=== PATIENT | female | born 1970 ===

== ENCOUNTER 2019-06-15 15:37 | Emergency (ER) | payer SELFPAY ==
--- NOTE | 2019-06-15 15:52 | UC ---
Throat Pain/Nasal Mario HPI - HPI Summary HPI Summary: 48 yo female presents with URI symptoms. She tells me that for the past week she has had a sore throat, sinus pain/pressure/congestion, post nasal drip, and a dry cough. She has been taking OTC dayquill with no relief. She is a former smoker, but has not in many years. Denies fever, chills, SOB, rash - History of Current Complaint Stated Complaint: SINUS COMPLAINT Time Seen by Provider: 06/15/19 15:52 Hx Obtained From: Patient Onset/Duration: Gradual Onset Severity: Moderate Pain Intensity: 5 Pain Scale Used: 0-10 Numeric - Allergies/Home Medications Allergies/Adverse Reactions: Allergies Allergy/AdvReac Type Severity Reaction Status Date / Time seasonal Allergy Runny Nose Uncoded 06/15/19 15:53 Home Medications: Home Medications Atorvastatin* [Lipitor*] 20 mg PO 1700 06/15/19 [History Confirmed 06/15/19] Budesonide [Rhinocort Allergy] 8.43 ml NS DAILY 06/15/19 [History Confirmed ] Cetirizine* [ZyrTEC 10 MG TAB*] 10 mg PO DAILY 06/15/19 [History Confirmed 06/15] Dayquil 1 cap PO DAILY 06/15/19 [History] Lisinopril [Zestril 5 MG-] 20 mg PO DAILY 06/15/19 [History Confirmed 06/15/19] Multivitamin [Multivitamins] 1 cap PO DAILY 06/15/19 [History Confirmed 06/15/19 ] PMH/Surg Hx/FS Hx/Imm Hx Endocrine History: Dyslipidemia Cardiovascular History: Hypertension - Surgical History Surgical History: Yes Surgery Procedure, Year, and Place: appendectomy. spinal surgery 2012. hysterscopy 3 months ago - Family History Known Family History: Positive: Hypertension - Social History Lives: With Family Alcohol Use: Occasionally Substance Use Type: None Smoking Status (MU): Former Smoker Type: Cigarettes Review of Systems All Other Systems Reviewed And Are Negative: No Constitutional: Positive: Negative Skin: Positive: Negative Eyes: Positive: Negative ENT: Positive: Sore Throat, Nasal Discharge, Sinus Congestion, Sinus Pain/ Tenderness Respiratory: Positive: Cough Cardiovascular: Positive: Negative Gastrointestinal: Positive: Negative Neurological: Positive: Negative Psychological: Positive: Negative Physical Exam - Summary Physical Exam Summary: GENERAL: NAD. WDWN. No pain distress. SKIN: No rashes, sores, lesions, or open wounds. HEENT: Head: AT/NC Eyes: EOM intact. Conjunctiva clear without inflammation or discharge. Ears: Hearing grossly normal. TMs intact, no bulging, erythema, or edema. Nose: Nasal mucosa mildly swollen and erythematous without discharge. TTP maxillary and frontal sinus. Positive post nasal drip Throat: Posterior oropharynx without exudates, erythema, or tonsillar enlargement. Uvula midline. NECK: Supple. Nontender. No lymphadenopathy. CHEST: CTAB. No r/r/w. No accessory muscle use. Breathing comfortably and in no distress. CV: RRR. Pulses intact. NEURO: Alert. PSYCH: Age appropriate behavior. Triage Information Reviewed: Yes Vital Signs: Vital Signs: Temp Pulse Resp BP Pulse Ox 98.7 F 109 18 142/93 98 06/15/19 15:56 06/15/19 15:56 06/15/19 15:56 06/15/19 15:56 06/15/19 15:56 Vital Signs Reviewed: Yes Throat Pain/Nasal Course/Dx - Course Course Of Treatment: Sinusitis - pt states the only anbx that works for her is levaquin or augmentin and is requesting either of these today. - Differential Dx/Diagnosis Provider Diagnosis: Sinusitis Discharge ED - Sign-Out/Discharge Documenting (check all that apply): Patient Departure All imaging exams completed and their final reports reviewed: No Studies - Discharge Plan Condition: Stable Disposition: HOME Prescriptions: Amoxicillin/Clavulanate TAB* [Augmentin TAB 875*] 875 mg PO BID #14 tab Codeine Phosphate/Guaifenesin [Guaifen-Codeine 100-10 mg/5 ml] 5 ml PO BEDTIME PRN #35 ml MDD 5mL PRN Reason: Cough Patient Education Materials: Sinusitis (ED) Referrals: No Primary Care Phys,NOPCP [Primary Care Provider] - Additional Instructions: If you develop a fever, shortness of breath, chest pain, new or worsening symptoms - please call your PCP or go to the ED immediately. Your blood pressure was high at todays visit. Please see your primary provider within 4 weeks for recheck and re-evaluation. - Billing Disposition and Condition Condition: STABLE Disposition: Home - Attestation Statements Provider Attestation: Per institutional requirements, I have reviewed the chart, however, I was not consulted specifically or made aware of this patient by the midlevel provider. I did not personally evaluate, interact with , or disposition this patient.
[2019-06-15 15:58] VITALS: BP 142/93
== END 2019-06-15 16:11 | disposition home or self-care (01) ==
LOC: UCEAST 15:37
DX: J32.9 Chronic sinusitis, unspecified (principal); J02.9 Acute pharyngitis, unspecified; E78.5 Hyperlipidemia, unspecified; I10 Essential (primary) hypertension; Z79.899 Other long term (current) drug therapy; Z87.891 Personal history of nicotine dependence; Z91.09 Other allergy status, other than to drugs and biological substances
CPT/HCPCS: 99202; G0463

== ENCOUNTER 2019-07-05 15:40 | Emergency (ER) | payer MEDICAID ==
--- NOTE | 2019-07-05 15:44 | UC ---
Throat Pain/Nasal Mario HPI - HPI Summary HPI Summary: 48 yo female presents with cold symptoms. I initially saw pt on 06/15 for similar complaints - at that time she was placed on augmentin. Today she tells me that her sinus symptoms resolved and she felt much better for a few days, but her symptoms have returned. Right sinus pressure and congestion with post nasal drip and dry cough worse at night. She tells me that she has had issues with sinus infections multiple times in the past and has had to have multiple rounds of antibiotics at times. She states she has going to be moving to [facility] within 1 month and will see an telegraph service clerk there as she has had to have allergy shots in the past. She is still taking zyrtec and using a nasal spray daily. Denies fever, chills, sore throat, SOB, rash, n/v - History of Current Complaint Stated Complaint: COLD SYMPTOMS Time Seen by Provider: 07/05/19 15:43 Hx Obtained From: Patient Hx Last Menstrual Period: 06/14/2019 Onset/Duration: Gradual Onset Severity: Moderate Pain Intensity: 6 Pain Scale Used: 0-10 Numeric - Allergies/Home Medications Allergies/Adverse Reactions: Allergies Allergy/AdvReac Type Severity Reaction Status Date / Time lactose Allergy GI Upset Verified 07/05/19 15:53 seasonal Allergy Runny Nose Uncoded 07/05/19 15:53 Home Medications: Home Medications Dm/Acetaminophen/Doxylamine [Vicks Nyquil Liquicaps] 1 each PO PRN 07/05/19 [ History] PMH/Surg Hx/FS Hx/Imm Hx Endocrine History: Dyslipidemia Cardiovascular History: Hypertension - Surgical History Surgical History: Yes Surgery Procedure, Year, and Place: appendectomy. spinal surgery 2012. hysterscopy 3 months ago - Family History Known Family History: Positive: Hypertension - Social History Alcohol Use: Occasionally Substance Use Type: None Smoking Status (MU): Former Smoker Type: Cigarettes Review of Systems All Other Systems Reviewed And Are Negative: No Constitutional: Positive: Negative Skin: Positive: Negative Eyes: Positive: Negative ENT: Positive: Nasal Discharge, Sinus Congestion, Sinus Pain/Tenderness Respiratory: Positive: Cough Cardiovascular: Positive: Negative Gastrointestinal: Positive: Negative Physical Exam - Summary Physical Exam Summary: GENERAL: NAD. WDWN. No pain distress. SKIN: No rashes, sores, lesions, or open wounds. HEENT: Head: AT/NC Eyes: EOM intact. Conjunctiva clear without inflammation or discharge. Ears: Hearing grossly normal. TMs intact, no bulging, erythema, or edema. Nose: Nasal mucosa pink and moist. Mild TTP right maxillary sinus. No rhinorrhea. Throat: Posterior oropharynx without exudates, erythema, or tonsillar enlargement. Uvula midline. NECK: Supple. Nontender. No lymphadenopathy. CHEST: CTAB. No r/r/w. No accessory muscle use. Breathing comfortably and in no distress. CV: RRR. Pulses intact. Cap refill <2seconds NEURO: Alert. PSYCH: Age appropriate behavior. Triage Information Reviewed: Yes Vital Signs: Vital Signs: Temp Pulse Resp BP Pulse Ox 99.2 F 99 16 152/88 99 07/05/19 15:48 07/05/19 15:48 07/05/19 15:48 07/05/19 15:48 07/05/19 15:48 Vital Signs Reviewed: Yes Throat Pain/Nasal Course/Dx - Course Course Of Treatment: Given that she improved with the augmentin, will rx for a 10 day course of this. Will also rx for tessalon and sudafed for her symptoms and have her continue zyrtec and her nasal spray. - Differential Dx/Diagnosis Provider Diagnosis: Sinusitis Discharge ED - Sign-Out/Discharge Documenting (check all that apply): Patient Departure All imaging exams completed and their final reports reviewed: No Studies - Discharge Plan Condition: Stable Disposition: HOME Prescriptions: Amoxicillin/Clavulanate TAB* [Augmentin TAB 875*] 875 mg PO BID #20 tab Benzonatate CAP* [Tessalon 100 MG CAP*] 100 mg PO TID PRN #21 cap PRN Reason: Cough Pseudoephedrine HCl [Sudafed 12-Hour] 120 mg PO BID PRN #30 tablet.er PRN Reason: Cough Patient Education Materials: Sinusitis (ED) Referrals: No Primary Care Phys,NOPCP [Primary Care Provider] - Additional Instructions: If you develop a fever, shortness of breath, chest pain, new or worsening symptoms - please call your PCP or go to the ED immediately. Your blood pressure was high at todays visit. Please see your primary provider within 4 weeks for recheck and re-evaluation. - Billing Disposition and Condition Condition: STABLE Disposition: Home
[2019-07-05 15:52] VITALS: BP 152/88
== END 2019-07-05 16:11 | disposition home or self-care (01) ==
LOC: UCEAST 15:40
DX: J32.9 Chronic sinusitis, unspecified (principal); I10 Essential (primary) hypertension; Z91.011 Allergy to milk products; Z91.09 Other allergy status, other than to drugs and biological substances; Z87.891 Personal history of nicotine dependence
CPT/HCPCS: 99212; G0463